=== PATIENT | male | born 1950 | race Caucasian/White ===

== ENCOUNTER 2024-09-22 11:46 | Emergency (ER) | payer BC, MEDICARE ==
[~2024-09-22] VITALS: Ht 170.2 cm; Wt 112.0 kg
[2024-09-22 11:50] VITALS: O2SAT 98
[2024-09-22 14:08] VITALS: BP 116/70; PULSE 88; RESP 17; TEMP 36.8; O2SAT 98
[2024-09-22 15:35] LABS: INFLUENZA TYPE A Presumptive Negative (Pres. Neg.)
[2024-09-22 15:36] LABS: INFLUENZA TYPE B Presumptive Negative (Pres. Neg.)
[2024-09-22 15:37] LABS: RESPIRATORY SYNCYTIAL VIRUS Not Detected (Not Detectd)
== END 2024-09-22 15:12 | disposition home or self-care (01) ==
LOC: ER 11:46
DX: J06.9 Acute upper respiratory infection, unspecified (principal); I10 Essential (primary) hypertension; I25.2 Old myocardial infarction; Z98.890 Other specified postprocedural states
CPT/HCPCS: 87420; 87804; 99283